=== PATIENT | male | born 1960 | race Caucasian/White ===

== ENCOUNTER 2024-10-30 10:04 | Emergency (ER) | payer MEDICARE, SELFPAY ==
[2024-10-30 10:04] VITALS: BMI 37.6
[2024-10-30 10:10] VITALS: BP 132/93
[2024-10-30 10:29] LABS: % Basophils 1.6 % (0-2); % Eosinophils 2.7 % (0-6); % Immature Granulocytes 0.2 % (0-0.5); % Monocytes 8.4 % (1.7-9.3); % Neutrophils 46.1 % (42.2-75.2); Absolute Basophils 0.1 10^3/uL (0-0.2); Absolute Eosinophils 0.1 10^3/uL (0-0.7); Absolute Monocytes 0.4 10^3/uL (0.1-0.6); Absolute Neutrophils 2.3 10^3/uL (1.4-6.5); Hematocrit 41.9 % (39.0-52.0); Hemoglobin 15.1 g/dL (13.0-18.0); Mean Corpuscular Hgb 31.5 pg (27.0-31.0); Mean Corpuscular Volume 87.5 fL (80.0-94.0); Mean Platelet Volume 10.6 fL (7.4-10.4); Nucleated Red Blood Cells % 0 % (-); Platelet Count 154 10^3/uL (130-400); Red Blood Cell Count 4.79 10^6/uL (4.70-6.10); Red Cell Dist. Width 11.9 % (11.5-14.5); White Blood Cell Count 4.9 10^3/uL (4.8-10.8)
[2024-10-30 10:51] LABS: ALT (SGPT) 103 U/L (0-50); AST (SGOT) 64 U/L (17-59); Albumin 4.3 g/dl (3.5-5.0); Alkaline Phosphatase 129 U/L (38-126); Blood Urea Nitrogen 17 mg/dl (9-20); Calcium 9.7 mg/dl (8.4-10.2); Carbon Dioxide 24 mmol/L (22-30); Chloride 103 mmol/L (98-107); Glucose 466 mg/dl (70-99); Potassium 4.7 mmol/L (3.5-5.1); Sodium 134 mmol/L (135-145); Total Protein 7.3 g/dl (6.3-8.2); eGFR > 60.00
[2024-10-30 10:53] LABS: Troponin I < 0.012 ng/ml
--- NOTE | 2024-10-30 11:48 | ED.GENMED ---
History of Present Illness
General
Chief Complaint: Chest Pain
Time Seen by Provider: 10/30/24 11:10
History of Present Illness
History of Present Illness:
64-year-old male presents to the emergency department for evaluation of an acute onset brief episode of left-sided chest and shoulder pain. States that it radiated from the chest to the left upper arm, lasted a prior to 20 minutes. He is not any
pain since no fevers or chills. No pain., Head catheterization was unremarkable
Past History
Past History
ED Past Medical History: Asthma, HTN and Hypercholesterolemia
ED Past Surgical History: Orthopedic
Social History
Tobacco: Non-smoker
Personal:
Living: with family
Employment: Employed
Family History
Family History: Other (Noncontributory)
Review of Systems
Review of Systems
Allergies reviewed?: Yes
All Other Systems: ROS reviewed and negative except as documented in HPI and ROS
Phy Exam
Physical Exam
Physical Exam:
GEN: Well appearing, NAD, WDWN
HEENT: Oral mucosa moist, no scleral icterus
Cardiac: Regular rate, and rhythm, no murmurs
Lung: No respiratory distress, no tachypnea, lungs clear to auscultation bilaterally
MSK: No gross deformity or injuries
Skin: Good color, no pallor or jaundice, no rashes
Neuro: AO x3, moves all extremities freely
Psych: Calm, cooperative
Scores
Heart Score for Chest Pain Patients
STEMI patient?: No
History: Slightly or Non-Suspicious
ECG: Normal
Age: >/= 65 years
Risk Factors: >/= 3 Risk Factors or History of CAD
Troponin: </= Normal Limit
Heart Score for Chest Pain Patients: 4
Heart Score Risk: 20.3% MACE over next 6 weeks
Course
Orders/Labs/Results
Orders:
Orders
10/30/24 10:05
Electrocardiogram (*1) Urgent
Reason for Study: Chest Pain
10/30/24 10:06
EKG- Treatment ONCE
10/30/24 10:19
Complete Blood Count/With Diff Urgent
Comprehensive Metabolic Panel Urgent
Troponin I Urgent
10/30/24 11:44
Insulin Aspart [NOVOLOG vial] 13 units SC NOW STA
10/30/24 11:45
EKG- Treatment ONCE
Lactated Ringers [Lr] 1,000 ml IV BOLUS
10/30/24 12:29
Troponin I Urgent
10/30/24 13:25
Bedside Glucose- Treatment ONCE
Abnormal Lab Results
10/30/24 10/30/24
10:19 13:27
MCH 31.5 H pg
(27.0-31.0)
MPV 10.6 H fL
(7.4-10.4)
Sodium 134 L mmol/L
(135-145)
Glucose 466 H* mg/dl
(70-99)
AST 64 H U/L
(17-59)
ALT 103 H U/L
(0-50)
Alkaline Phosphatase 129 H U/L
(38-126)
POC Glucose 284 H mg/dl
(70-99)
10/30/24 10:19
10/30/24 10:19
Vital Signs
Initial and Last Documented VS:
Initial Vital Signs
Temp Pulse Resp BP Pulse Ox
98.5 F 65 16 132/93 96
10/30/24 10:10 10/30/24 10:10 10/30/24 10:10 10/30/24 10:10 10/30/24 10:10
Last Documented Vital Signs
Temp Pulse Resp BP Pulse Ox
98.4 F 60 17 107/63 97
10/30/24 12:00 10/30/24 14:20 10/30/24 14:20 10/30/24 14:20 10/30/24 14:15
MDM/Problems Addressed
MDM/Problems Addressed:
Unclear etiology of the patient's abrupt onset of chest pain however EKG and troponins are negative x 2. He is known to be markedly hyperglycemic which is likely secondary to medication and dietary noncompliance. Educated on importance of
medication compliance, will increase Lantus, certainly does not sound like he uses mealtime insulin at this time. Communicated with his primary care physician in order to facilitate outpatient follow-up
Comment
Comment:
EKG independently interpreted by me shows a normal sinus rhythm at a rate of 66 w/o ischemic changes
*Critical Care Note
Total Time (30-74mins, 75-104mins- exclusive of procedures): Not Applicable
ED Attending Note
-
Portions of this chart may have been created with voice recognition software.� Occasional wrong word or��sound alike� substitutions may have occurred due to the inherent limitations of voice recognition software.
Discharge Plan
Departure
Patient Disposition: Home (Routine Discharge)
Date of Disposition: 10/30/24
Time of Disposition: 14:04
Patient with high blood pressure during this ER visit?: No
Discharge Problem:
Type 2 diabetes mellitus with hyperglycemia
Instructions: High blood sugar in adults - ED discharge instructions, Chest Pain CBC Follow Up
Prescriptions:
No Action
lisinopril 20 MG tablet
20 mg PO DAILY
aspirin 81 MG tablet,chewable
81 mg PO DAILY
budesonide-formoterol [Symbicort] 1 PUFF HFA aerosol inhaler
1 puff inhalation DAILY
Referrals:
Ralph Mendoza MD [Family Provider, Family Practice]
Activity Restrictions/Additional Instructions:
Increase your nighttime insulin to 24 units nightly
Interventions
Interventions:
*Risk Screen - Suicide Last Done: 10/30/24 10:10
*General Assessment Last Done: 10/30/24 10:10
*Neglect/Abuse Screening Last Done: 10/30/24 12:32
*ED- Fall Risk Assessment Last Done: 10/30/24 12:32
*ED COVID-19 Vaccine History Last Done: 10/30/24 14:32
*Nursing Disposition Last Done: 10/30/24 14:32
ED- Cardiac Assessment Last Done: 10/30/24 12:31
Discharge Date and Time
Discharge Date/Time: 10/30/24 14:34
Print Language: IRANIAN
[2024-10-30 12:00] VITALS: BP 137/90
[2024-10-30 12:06] VITALS: BP 137/90
[2024-10-30] MEDS: NOVOLOG vial 13 UNITS SC (12:26)
[2024-10-30] MEDS: LR 1000 IV (12:27)
[2024-10-30 13:00] VITALS: BP 114/74
[2024-10-30 13:13] LABS: Troponin I < 0.012 ng/ml
[2024-10-30 13:29] LABS: Glucose - Point of Care 284 mg/dl (70-99)
[2024-10-30 14:00] VITALS: BP 120/75
[2024-10-30 14:20] VITALS: BP 107/63
== END 2024-10-30 14:34 | disposition home or self-care (01) ==
LOC: EMR 10:04
PROVIDERS: Physician Assistant; EMERGENCY PHYSICIAN Emergency Medicine; FAMILY PHYSICIAN Family Medicine; OTHER PHYSICIAN Internal Medicine
DX: E11.65 Type 2 diabetes mellitus with hyperglycemia (principal); J45.909 Unspecified asthma, uncomplicated; I10 Essential (primary) hypertension; E78.00 Pure hypercholesterolemia, unspecified; Z91.119 Patient's noncompliance with dietary regimen due to unspecified reason
CPT/HCPCS: 99283; 96360; 96372; 80053; 82962; 84484; 85025; 93005